=== PATIENT | male | born 1990 | race Native Hawaiian/Other Pacific Islander ===

== ENCOUNTER 2021-12-05 14:00 | Emergency (ER) | payer OTHER ==
[~2021-12-05] VITALS: Ht 175.3 cm; Wt 204.1 kg
[2021-12-05 14:21] LABS: PLATELET COUNT 404 K/uL (142-355)
[2021-12-05 14:33] LABS: POTASSIUM 4.5 mmol/L (3.6-5.2)
[2021-12-05 19:30] VITALS: BP 139/97; TEMP 98.4
== END 2021-12-05 19:30 | disposition short-term general hospital (02) ==
LOC: ED 14:00
PROVIDERS: Emergency Medicine Emergency Medical Services
PROC: 0T9B70Z Drainage of Bladder with Drainage Device, Via Natural or Artificial Opening (ICD-10-PCS; principal; 2021-12-05)
DX: R41.82 Altered mental status, unspecified (principal); R06.09 Other forms of dyspnea
CPT/HCPCS: 36600; 51702; 80053; 80143; 80179; 80307; 81000; 82805; 82948; 84484; 85027; 85379; 85610; 93005; 94660; 94664; 96374; 96376; 99284; J1815; J1940; J2310; J3490